=== PATIENT | female | born 1975 | race American Indian/Alaskan Native ===

== ENCOUNTER 2016-09-16 16:04 | Emergency (ER) | payer MEDICAID ==
[2016-09-16] MEDS ORDERED: Sodium Chloride 0.9% 10 ML Syringe FLUSH PRN (16:26)
[2016-09-16 17:22] LABS: CHLORIDE,CL 86 mmol/L (101-111); SODIUM,NA 138 mmol/L (135-145)
[2016-09-16 17:57] VITALS: BP 121/72
--- NOTE | 2016-09-16 18:50 | EDM.PDOC ---
Scribed by Shayy Barboza 09/16/16 [id number] for Christian Mcgovern MD ED HPI GENERAL MEDICAL PROBLEM - General Chief Complaint: Chest Pain Stated Complaint: CHEST PAINS, VOMITTING, [id number] Time Seen by Provider: 09/16/16 16:17 Source of Information: Reports: Patient, RN, RN Notes Reviewed History Limitations: Reports: No Limitations - History of Present Illness INITIAL COMMENTS - FREE TEXT/NARRATIVE: Arrives from home with complaint of epigastric pain x6 weeks, now radiating to chest and 4 days of constant rapid heart rate. Admits to vomiting a couple of times a day for 6 weeks. Denies coffee ground emesis. Reports a small amount of blood streak on the emesis yesterday. Reports fevers on and off x1 week. Duration: Week(s): (6), Constant, Getting Worse Location: Reports: Chest, Abdomen, Generalized Severity: Severe Worsens with: Reports: Eating Epigastric Pain Score (Numeric/FACES): 7 - Related Data Allergies Allergy/AdvReac Type Severity Reaction Status Date / Time No Known Allergies Allergy Verified 02/12/16 09:12 Home Meds: Home Meds metFORMIN [Glucophage] 1,000 mg PO BIDM 10/07/13 [History] Gabapentin [Neurontin] 300 mg PO TID 08/04/14 [History] Metoprolol Succinate [Toprol XL] 50 mg PO DAILY 08/04/14 [History] Ondansetron [Zofran] 4 mg PO ASDIRECTED PRN 08/04/14 [History] PARoxetine [Paxil] 20 mg PO BID 08/04/14 [History] Pantoprazole [Protonix] 40 mg PO DAILY 10/14/14 [History] Ferrous Sulfate 1 tab PO BID 02/12/16 [History] atorvaSTATin [Lipitor] 2 tab PO BEDTIME 02/12/16 [History] glipiZIDE [Glucotrol XL] 1 tab PO DAILY 02/12/16 [History] Past Medical History HEENT History: Reports: Sinusitis Cardiovascular History: Reports: Arrhythmia (atrial flutter), High Cholesterol, Syncope Respiratory History: Reports: None Gastrointestinal History: Reports: Chronic Diarrhea, Other (See Below) (peptic ulcer disease.) Other Gastrointestinal History: some kind of ulcer Genitourinary History: Reports: Renal 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 History: Reports: Musculoskeletal History: Reports: Fibromyalgia 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) Psychiatric History: Reports: Suicide Attempt Endocrine/Metabolic History: Reports: Diabetes, Type II Hematologic History: Reports: Anemia (transfusion x2.), Other (See Below) Other Hematologic History: vitamin D def Immunologic History: Reports: None Oncologic (Cancer) History: Reports: None Dermatologic History: Reports: None - Infectious Disease History Infectious Disease History: Reports: Chicken Pox - Past Surgical History Cardiovascular Surgical History: Reports: Cardiac Ablation Female Surgical History: Reports: Section, Tubal Ligation Social & Family History - Family History HEENT: Reports: None Cardiac: Reports: [place], Other (See Below) Other Cardiac Family History: heart surg Respiratory: Reports: None GI: Reports: None : Reports: Renal Disease/Insufficiency OBGYN: Reports: Ectopic Musculoskeletal: Reports: Fibromyalgia Neurological: Reports: CVA Psychiatric: Reports: Depression Endocrine/Metabolic: Reports: Diabetes, type II Hematologic: Reports: None Immunologic: Reports: None Oncologic: Reports: Breast - Tobacco Use Smoking Status *Q: Current Every Day Smoker Years of Tobacco use: 19 Packs/Tins Daily: 0.1 Second Hand Smoke Exposure: Yes - Caffeine Use Caffeine Use: Reports: Soda - Alcohol Use Days Per Week of Alcohol Use: 0 - Recreational Drug Use Recreational Drug Use: No ED ROS GENERAL - Review of Systems Review Of Systems: ROS reveals no pertinent complaints other than HPI. ED EXAM, GENERAL - Physical Exam Exam: See Below Exam Limited By: No Limitations General Appearance: Alert, No Apparent Distress, Other (chronically ill appearing) Eye Exam: Bilateral Eye: Normal Inspection Ears: Normal External Exam, Normal Canal, Hearing Grossly Normal, Normal TMs Nose: Normal Inspection, Normal Mucosa, No Blood Throat/Mouth: Other (dry oral membranes) Neck: Normal Inspection, Supple, Non-Tender, Full Range of Motion Respiratory/Chest: No Respiratory Distress, Lungs Clear, Normal Breath Sounds, No Accessory Muscle Use, Chest Non-Tender Cardiovascular: Normal Peripheral Pulses, Regular Rate, Rhythm, No Edema, No Gallop, No JVD, No Murmur, No Rub, Tachycardia GI/Abdominal: Soft, Non-Tender, No Distention, No Abnormal Bruit, Abnormal Bowel Sounds (hypoactive). No: Guarding, Rigid, Rebound (Female) Exam: Deferred Rectal (Female) Exam: Deferred Back Exam: Normal Inspection Extremities: Normal Inspection, Normal Range of Motion, Non-Tender, Normal Capillary Refill, No Pedal Edema Neurological: Alert, Oriented, CN II-XII Intact, Normal Cognition, Normal Gait, No Motor/Sensory Deficits Psychiatric: Anxious Skin Exam: Warm, Dry, Intact, No Rash, Pallor Lymphatic: No Adenopathy EKG INTERPRETATION EKG Date: 09/16/16 Time: 16:24 Rhythm: Other (sinus rhythm) Rate (Beats/Min): 99 Jenkins: LAD-Left Jenkins Deviation (borderline) P-Wave: Present QRS: Normal ST-T: Normal QT: Normal Course - Vital Signs Last Recorded V/S: Last Vital Signs Temp 36.4 C 09/16/16 17:56 Pulse 102 H 09/16/16 17:56 Resp 20 09/16/16 17:56 BP 121/72 09/16/16 17:56 Pulse Ox 96 09/16/16 17:56 - Orders/Labs/Meds Orders: Active Orders 24 hr Category Date Time Status EKG 12 Lead [EKG Documentation Completion] [RC] STAT Care 09/16/16 16:27 Active Peripheral IV Care [RC] . DIRECTED Care 09/16/16 16:27 Active Chest 1V Frontal [CR] Stat Exams 09/16/16 16:27 Taken PTH INTACT INCL CALCIUM [REF] Stat Lab 09/16/16 17:50 Received Sodium Chloride 0.9% [Saline Flush] Med 09/16/16 16:26 Active 10 ml FLUSH ASDIRECTED PRN Peripheral IV Insertion Adult [OM.PC] Stat Oth 09/16/16 16:26 Ordered Medication Orders Sodium Chloride (Saline Flush) 10 ml FLUSH ASDIRECTED PRN PRN Reason: Keep Vein Open Last Admin: 09/16/16 17:13 Dose: 10 ml Labs: Laboratory Tests 09/16/16 09/16/16 09/16/16 Range/Units 16:31 16:31 16:40 WBC 9.1 (5.0-10.0) 10^3/uL RBC 4.02 L (4.2-5.4) 10^6/uL Hgb 10.0 L (12.0-16.0) g/dL Hct 33.1 L (37.0-47.0) % MCV 82.3 (80-100) fL MCH 24.9 L (27.0-34.0) pg MCHC 30.2 L (33.0-35.0) g/dL Plt Count 388 (150-450) 10^3/uL Neut % (Auto) 81.4 H (42.2-75.2) % Lymph % (Auto) 9.9 L (20.5-50.1) % [place] % (Auto) 7.4 (2-8) % Eos % (Auto) 1.1 (1.0-3.0) % Baso % (Auto) 0.2 (0.0-1.0) % Sodium (135-145) mmol/L Potassium (3.6-5.0) mmol/L Chloride (101-111) mmol/L Carbon Dioxide (21.0-31.0) mmol/L Anion Gap BUN (7-18) mg/dL Creatinine (0.6-1.3) mg/dL Est Cr Clr Drug Dosing mL/min Estimated GFR (MDRD) BUN/Creatinine Ratio Glucose (74-105) mg/dL Calcium (8.4-10.2) mg/dl Magnesium (1.8-2.5) mg/dL Total Bilirubin (0.2-1.0) mg/dL AST (10-42) IU/L ALT (10-60) IU/L Alkaline Phosphatase (42-121) IU/L Lactate Dehydrogenase (91-180) IU/L Troponin I (0.00-0.02) ng/ml Total Protein (6.7-8.2) g/dl Albumin (3.2-5.5) g/dl Globulin Albumin/Globulin Ratio Amylase (28-100) U/L Lipase (22-51) U/L TSH, Ultra Sensitive (0.35-7.0) uIu/mL Urine Color Yellow (YELLOW) Urine Appearance Cloudy (CLEAR) Urine pH 6.0 (5.0-9.0) Ur Specific [place] 1.020 (1.005-1.030) Urine Protein 30 H (NEGATIVE) Urine Glucose (UA) Negative (NEGATIVE) Urine Ketones Negative (NEGATIVE) Urine Occult Blood Trace-lysed H (NEGATIVE) Urine Nitrite Negative (NEGATIVE) Urine Bilirubin Negative (NEGATIVE) Urine Urobilinogen 0.2 (0.2-1.0) mg/dL Ur Leukocyte Esterase Large H (NEGATIVE) Urine RBC 5-10 H /HPF Urine WBC 50-75 H (0-5/HPF) /HPF Ur Epithelial Cells Many H /HPF Urine Bacteria Moderate H (0-FEW/HPF) /HPF Urine Mucus Few H /LPF Urine HCG, Qual Negative 09/16/16 09/16/16 09/16/16 Range/Units 16:40 16:40 16:40 WBC (5.0-10.0) 10^3/uL RBC (4.2-5.4) 10^6/uL Hgb (12.0-16.0) g/dL Hct (37.0-47.0) % MCV (80-100) fL MCH (27.0-34.0) pg MCHC (33.0-35.0) g/dL Plt Count (150-450) 10^3/uL Neut % (Auto) (42.2-75.2) % Lymph % (Auto) (20.5-50.1) % [place] % (Auto) (2-8) % Eos % (Auto) (1.0-3.0) % Baso % (Auto) (0.0-1.0) % Sodium 138 (135-145) mmol/L Potassium 3.4 L (3.6-5.0) mmol/L Chloride 86 L (101-111) mmol/L Carbon Dioxide 38.0 H (21.0-31.0) mmol/L Anion Gap 17.4 BUN 36 H (7-18) mg/dL Creatinine 3.7 H (0.6-1.3) mg/dL Est Cr Clr Drug Dosing 16.89 mL/min Estimated GFR (MDRD) 14 BUN/Creatinine Ratio 9.72 Glucose 92 (74-105) mg/dL Calcium 18.6 H* (8.4-10.2) mg/dl Magnesium 1.6 L (1.8-2.5) mg/dL Total Bilirubin 0.5 (0.2-1.0) mg/dL AST 27 (10-42) IU/L ALT 16 (10-60) IU/L Alkaline Phosphatase 66 (42-121) IU/L Lactate Dehydrogenase 52 L (91-180) IU/L Troponin I < 0.02 (0.00-0.02) ng/ml Total Protein 8.0 (6.7-8.2) g/dl Albumin 3.9 (3.2-5.5) g/dl Globulin 4.1 Albumin/Globulin Ratio 0.95 Amylase 64 (28-100) U/L Lipase 16 L (22-51) U/L TSH, Ultra Sensitive 0.66 (0.35-7.0) uIu/mL Urine Color (YELLOW) Urine Appearance (CLEAR) Urine pH (5.0-9.0) Ur Specific [place] (1.005-1.030) Urine Protein (NEGATIVE) Urine Glucose (UA) (NEGATIVE) Urine Ketones (NEGATIVE) Urine Occult Blood (NEGATIVE) Urine Nitrite (NEGATIVE) Urine Bilirubin (NEGATIVE) Urine Urobilinogen (0.2-1.0) mg/dL Ur Leukocyte Esterase (NEGATIVE) Urine RBC /HPF Urine WBC (0-5/HPF) /HPF Ur Epithelial Cells /HPF Urine Bacteria (0-FEW/HPF) /HPF Urine Mucus /LPF Urine HCG, Qual 09/16/16 Range/Units 17:50 WBC (5.0-10.0) 10^3/uL RBC (4.2-5.4) 10^6/uL Hgb (12.0-16.0) g/dL Hct (37.0-47.0) % MCV (80-100) fL MCH (27.0-34.0) pg MCHC (33.0-35.0) g/dL Plt Count (150-450) 10^3/uL Neut % (Auto) (42.2-75.2) % Lymph % (Auto) (20.5-50.1) % [place] % (Auto) (2-8) % Eos % (Auto) (1.0-3.0) % Baso % (Auto) (0.0-1.0) % Sodium 137 (135-145) mmol/L Potassium 3.5 L (3.6-5.0) mmol/L Chloride 86 L (101-111) mmol/L Carbon Dioxide 37.0 H (21.0-31.0) mmol/L Anion Gap 17.5 BUN 36 H (7-18) mg/dL Creatinine 3.6 H (0.6-1.3) mg/dL Est Cr Clr Drug Dosing 17.36 mL/min Estimated GFR (MDRD) 14 BUN/Creatinine Ratio Glucose 51 L (74-105) mg/dL Calcium 19.0 H* (8.4-10.2) mg/dl Magnesium (1.8-2.5) mg/dL Total Bilirubin (0.2-1.0) mg/dL AST (10-42) IU/L ALT (10-60) IU/L Alkaline Phosphatase (42-121) IU/L Lactate Dehydrogenase (91-180) IU/L Troponin I (0.00-0.02) ng/ml Total Protein (6.7-8.2) g/dl Albumin (3.2-5.5) g/dl Globulin Albumin/Globulin Ratio Amylase (28-100) U/L Lipase (22-51) U/L TSH, Ultra Sensitive (0.35-7.0) uIu/mL Urine Color (YELLOW) Urine Appearance (CLEAR) Urine pH (5.0-9.0) Ur Specific [place] (1.005-1.030) Urine Protein (NEGATIVE) Urine Glucose (UA) (NEGATIVE) Urine Ketones (NEGATIVE) Urine Occult Blood (NEGATIVE) Urine Nitrite (NEGATIVE) Urine Bilirubin (NEGATIVE) Urine Urobilinogen (0.2-1.0) mg/dL Ur Leukocyte Esterase (NEGATIVE) Urine RBC /HPF Urine WBC (0-5/HPF) /HPF Ur Epithelial Cells /HPF Urine Bacteria (0-FEW/HPF) /HPF Urine Mucus /LPF Urine HCG, Qual Meds: Medications Generic Name Dose Route Start Last Admin Trade Name Freq PRN Reason Stop Dose Admin Sodium Chloride 10 ml 09/16/16 16:26 09/16/16 17:13 Saline Flush FLUSH 10 ml ASDIRECTED PRN Administration Keep Vein Open - Radiology Interpretation Free Text/Narrative:: Chest x-ray: Per rad report no acute findings. Departure - Departure Time of Disposition: 18:21 Disposition: DC/Tfer to Acute Hospital 02 Reason for Transfer *Q: Primary PCI Indicated Condition: Critical Clinical Impression: Hypercalcemia, Unexplained weight loss, Palpitations Abdominal pain Qualifiers: Abdominal location: epigastric Qualified Code(s): R10.13 - Epigastric pain Forms: ED Department Discharge, Interfacility Transfer EMTALA - My Orders Last 24 Hours: My Active Orders 09/16/16 16:26 Sodium Chloride 0.9% [Saline Flush] 10 ml FLUSH ASDIRECTED PRN Peripheral IV Insertion Adult [OM.PC] Stat 09/16/16 16:27 EKG 12 Lead [EKG Documentation Completion] [RC] STAT Peripheral IV Care [RC] . DIRECTED Chest 1V Frontal [CR] Stat 09/16/16 17:50 PTH INTACT INCL CALCIUM [REF] Stat - Assessment/Plan Last 24 Hours: My Active Orders 09/16/16 16:26 Sodium Chloride 0.9% [Saline Flush] 10 ml FLUSH ASDIRECTED PRN Peripheral IV Insertion Adult [OM.PC] Stat 09/16/16 16:27 EKG 12 Lead [EKG Documentation Completion] [RC] STAT Peripheral IV Care [RC] . DIRECTED Chest 1V Frontal [CR] Stat 09/16/16 17:50 PTH INTACT INCL CALCIUM [REF] Stat I have read and agree with the documentation that has been completed regarding this visit. By signing this record, I attest that the documentation was completed in my physical presence and is an accurate record of the encounter.
--- NOTE | 2016-09-20 13:04 | EKG ---
09/16/2016 - ALYSSA PERDOMO - A 12-lead EKG shows normal sinus rhythm with heart rate of 99. No significant ST elevation or ST depression noted on this 12-lead EKG. [facility] /[id number]
== END 2016-09-16 19:04 ==
LOC: DL.ED 16:04
DX: R10.13 Epigastric pain (principal); E83.52 Hypercalcemia; R63.4 Abnormal weight loss; R00.2 Palpitations; E78.00 Pure hypercholesterolemia, unspecified; E11.9 Type 2 diabetes mellitus without complications; D64.9 Anemia, unspecified; F17.210 Nicotine dependence, cigarettes, uncomplicated; Z87.442 Personal history of urinary calculi; Z98.51 Tubal ligation status; Z79.899 Other long term (current) drug therapy; Z79.84 Long term (current) use of oral hypoglycemic drugs
CPT/HCPCS: 36415; 71010; 80048; 80053; 81001; 81025; 82150; 82310; 83615; 83690; 83735; 83970; 84443; 84484; 85025; 93005; 99285; J7050

== ENCOUNTER 2018-05-02 10:05 | Emergency (ER) | payer MEDICAID ==
[2018-05-02 10:19] VITALS: BP 96/75
--- NOTE | 2018-05-02 10:49 | EDM.PDOC ---
ED HPI GENERAL MEDICAL PROBLEM - General Chief Complaint: Abdominal Pain Stated Complaint: STOMACH/KIDNEY PAINS [id number] Time Seen by Provider: 05/02/18 10:36 Source of Information: Reports: Patient, RN, RN Notes Reviewed History Limitations: Reports: No Limitations - History of Present Illness INITIAL COMMENTS - FREE TEXT/NARRATIVE: Pt to ER with c/o stomach pain and "kidney hurts", flank pain. She states it began about 1 1/2 weeks ago and has progressively gotten worse to where she can' t stand it anymore. She rates the pain 6/10. She states she is currently having her period and there is no chances of . Patient admits to fever, nausea and vomiting, SOB and CP with pain. Denies chills, diarrhea. She admits to hx of diabetes, atrial flutter, HTN, high cholesterol. Patient states she still has both her gallbladder and appendix. Onset: Gradual Duration: Constant, Getting Worse Location: Reports: Abdomen Quality: Reports: Sharp, Stabbing Severity: Moderate Improves with: Reports: None Worsens with: Reports: None Associated Symptoms: Reports: Fever/Chills, Nausea/Vomiting Abdomen Pain Score (Numeric/FACES): 9 - Related Data Allergies Allergy/AdvReac Type Severity Reaction Status Date / Time No Known Allergies Allergy Verified 05/02/18 10:11 Home Meds: Home Meds Gabapentin [Neurontin] 300 mg PO TID 08/04/14 [History] Metoprolol Succinate [Toprol XL] 50 mg PO DAILY 08/04/14 [History] Ondansetron [Zofran] 4 mg PO ASDIRECTED PRN 08/04/14 [History] Pantoprazole [Protonix] 40 mg PO DAILY 10/14/14 [History] Ferrous Sulfate 325 mg PO BID 02/12/16 [History] glipiZIDE [Glucotrol XL] 10 tab PO BID 02/12/16 [History] Cyanocobalamin (Vitamin B12) [Cyanocobalamin] 1,000 mcg IM ASDIRECTED 01/02/18 [ History] Folic Acid 1 mg PO DAILY 01/02/18 [History] PARoxetine [Paxil] 30 mg PO DAILY 01/02/18 [History] Potassium Chloride [Klor-Con M20] 20 meq PO DAILY 01/02/18 [History] Past Medical History HEENT History: Reports: Sinusitis Cardiovascular History: Reports: Arrhythmia, High Cholesterol, Syncope Other Cardiovascular History: atrial flutter Respiratory History: Reports: None Gastrointestinal History: Reports: Chronic Diarrhea, Other (See Below) Other Gastrointestinal History: some kind of ulcer Genitourinary History: Reports: Renal Calculus 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: Musculoskeletal History: Reports: Fibromyalgia Neurological History: Reports: Seizure Other Neuro History: "convulsions" when she was 3 Psychiatric History: Reports: Suicide Attempt Endocrine/Metabolic History: Reports: Diabetes, Type II Hematologic History: Reports: Anemia, Other (See Below) Other Hematologic History: vitamin D def Immunologic History: Reports: None Oncologic (Cancer) History: Reports: None Dermatologic History: Reports: None - Infectious Disease History Infectious Disease History: Reports: Chicken Pox - Past Surgical History Head Surgeries/Procedures: Reports: None Cardiovascular Surgical History: Reports: Cardiac Ablation Female Surgical History: Reports: Section, Tubal Ligation Social & Family History - Family History Family Medical History: Noncontributory HEENT: Reports: None Cardiac: Reports: HI, Other (See Below) Other Cardiac Family History: heart surg Respiratory: Reports: None GI: Reports: None : Reports: Renal Disease/Insufficiency OBGYN: Reports: Ectopic Musculoskeletal: Reports: Fibromyalgia Neurological: Reports: CVA Psychiatric: Reports: Depression Endocrine/Metabolic: Reports: Diabetes, type II Hematologic: Reports: None Immunologic: Reports: None Oncologic: Reports: Breast - Tobacco Use Smoking Status *Q: Current Some Day Smoker Years of Tobacco use: 4 Packs/Tins Daily: 1 - Caffeine Use Caffeine Use: Reports: None - Recreational Drug Use Recreational Drug Use: No ED ROS GENERAL - Review of Systems Review Of Systems: ROS reveals no pertinent complaints other than HPI. ED EXAM, GI/ABD - Physical Exam Exam: See Below Exam Limited By: No Limitations General Appearance: Alert, WD/WN, Moderate Distress Eyes: Bilateral: Normal Appearance, EOMI Ears: Normal External Exam, Hearing Grossly Normal Nose: Normal Inspection Throat/Mouth: Normal Inspection, Normal Voice, No Airway Compromise Head: Atraumatic, Normocephalic Neck: Normal Inspection, Supple, Non-Tender, Full Range of Motion Respiratory/Chest: No Respiratory Distress, Lungs Clear, Normal Breath Sounds, No Accessory Muscle Use, Chest Non-Tender Cardiovascular: Normal Peripheral Pulses, Regular Rate, Rhythm, No Edema, No Gallop, No JVD, No Murmur, No Rub GI/Abdominal Exam: Normal Bowel Sounds, Soft, Tender (RUQ, LUQ, epigastrum) (Female) Exam: Deferred Rectal (Female) Exam: Deferred Back Exam: Normal Inspection, Full Range of Motion, CVA Tenderness (L), CVA Tenderness (R) Extremities: Normal Inspection, Normal Range of Motion, Non-Tender, No Pedal Edema, Normal Capillary Refill Neurological: Alert, Oriented, CN II-XII Intact, Normal Cognition, Normal Gait, Normal Reflexes, No Motor/Sensory Deficits Psychiatric: Anxious Skin Exam: Warm, Dry, Intact, Normal Color, No Rash Lymphatic: No Adenopathy Course - Vital Signs Last Recorded V/S: Last Vital Signs Temp 98.6 F 05/02/18 10:15 Pulse 122 H 05/02/18 10:15 Resp 20 05/02/18 10:15 BP 96/75 05/02/18 10:15 Pulse Ox 100 05/02/18 10:15 - Orders/Labs/Meds Orders: Active Orders 24 hr Category Date Time Status Peripheral IV Care [RC] . DIRECTED Care 05/02/18 10:33 Active CULTURE URINE [RM] Stat Lab 05/02/18 10:18 Received Sodium Chloride 0.9% [Normal Saline] 1,000 ml Med 05/02/18 12:11 Active IV .BOLUS Sodium Chloride 0.9% [Saline Flush] Med 05/02/18 10:33 Active 10 ml FLUSH ASDIRECTED PRN Peripheral IV Insertion Adult [OM.PC] Stat Oth 05/02/18 10:33 Ordered Medication Orders Sodium Chloride (Normal Saline) 1,000 mls @ 999 mls/hr IV .BOLUS ONE Stop: 05/02/18 13:11 Last Admin: 05/02/18 12:14 Dose: 999 mls/hr Sodium Chloride (Saline Flush) 10 ml FLUSH ASDIRECTED PRN PRN Reason: Keep Vein Open Last Admin: 05/02/18 10:54 Dose: 10 ml Labs: Laboratory Tests 05/02/18 05/02/18 05/02/18 Range/Units 10:18 10:18 10:18 WBC (5.0-10.0) 10^3/uL RBC (4.2-5.4) 10^6/uL Hgb (12.0-16.0) g/dL Hct (37.0-47.0) % MCV (80-100) fL MCH (27.0-34.0) pg MCHC (33.0-35.0) g/dL Plt Count (150-450) 10^3/uL Neut % (Auto) (42.2-75.2) % Lymph % (Auto) (20.5-50.1) % [place] % (Auto) (2-8) % Eos % (Auto) (1.0-3.0) % Baso % (Auto) (0.0-1.0) % Sodium (135-145) mmol/L Potassium (3.6-5.0) mmol/L Chloride (101-111) mmol/L Carbon Dioxide (21.0-31.0) mmol/L Anion Gap BUN (7-18) mg/dL Creatinine (0.6-1.3) mg/dL Est Cr Clr Drug Dosing mL/min Estimated GFR (MDRD) BUN/Creatinine Ratio Glucose (74-105) mg/dL Calcium (8.4-10.2) mg/dl Total Bilirubin (0.2-1.0) mg/dL AST (10-42) IU/L ALT (10-60) IU/L Alkaline Phosphatase (42-121) IU/L Total Protein (6.7-8.2) g/dl Albumin (3.2-5.5) g/dl Globulin Albumin/Globulin Ratio Amylase (28-100) U/L Lipase (22-51) U/L Urine Color Red (YELLOW) Urine Appearance Slightly cloudy (CLEAR) Urine pH 6.5 (5.0-9.0) Ur Specific [place] 1.020 (1.005-1.030) Urine Protein 100 H (NEGATIVE) Urine Glucose (UA) 100 H (NEGATIVE) Urine Ketones Negative (NEGATIVE) Urine Occult Blood Large H (NEGATIVE) Urine Nitrite Negative (NEGATIVE) Urine Bilirubin Small H (NEGATIVE) Urine Urobilinogen 0.2 (0.2-1.0) mg/dL Ur Leukocyte Esterase Small H (NEGATIVE) Urine RBC >100 H /HPF Urine WBC 10-20 H (0-5/HPF) /HPF Ur Epithelial Cells Many H /HPF Urine Bacteria Moderate H (0-FEW/HPF) /HPF Urine Mucus Few H /LPF Urine HCG, Qual Negative Urine Opiates Screen Negative (NEGATIVE) Ur Oxycodone Screen Negative (NEGATIVE) Urine Methadone Screen Positive H (NEGATIVE) Ur Barbiturates Screen Negative (NEGATIVE) U Tricyclic Antidepress Positive H (NEGATIVE) Ur Phencyclidine Scrn Negative (NEGATIVE) Ur Amphetamine Screen Negative (NEGATIVE) U Methamphetamines Scrn Negative (NEGATIVE) Urine MDMA Screen Negative (NEGATIVE) U Benzodiazepines Scrn Negative (NEGATIVE) Urine Cocaine Screen Negative (NEGATIVE) U Marijuana (THC) Screen Negative (NEGATIVE) 05/02/18 05/02/18 05/02/18 Range/Units 10:26 10:26 10:26 WBC 12.4 H (5.0-10.0) 10^3/uL RBC 5.03 (4.2-5.4) 10^6/uL Hgb 13.4 D (12.0-16.0) g/dL Hct 41.0 (37.0-47.0) % MCV 81.5 (80-100) fL MCH 26.6 L (27.0-34.0) pg MCHC 32.7 L (33.0-35.0) g/dL Plt Count 473 H D (150-450) 10^3/uL Neut % (Auto) 65.9 (42.2-75.2) % Lymph % (Auto) 17.8 L (20.5-50.1) % [place] % (Auto) 6.1 (2-8) % Eos % (Auto) 9.7 H (1.0-3.0) % Baso % (Auto) 0.5 (0.0-1.0) % Sodium 132 L (135-145) mmol/L Potassium 3.4 L (3.6-5.0) mmol/L Chloride 96 L (101-111) mmol/L Carbon Dioxide 20.0 L (21.0-31.0) mmol/L Anion Gap 19.4 BUN 27 H (7-18) mg/dL Creatinine 1.0 (0.6-1.3) mg/dL Est Cr Clr Drug Dosing 61.24 mL/min Estimated GFR (MDRD) > 60 BUN/Creatinine Ratio 27.00 Glucose 337 H (74-105) mg/dL Calcium 10.3 H (8.4-10.2) mg/dl Total Bilirubin 0.4 (0.2-1.0) mg/dL AST 19 (10-42) IU/L ALT 13 (10-60) IU/L Alkaline Phosphatase 68 (42-121) IU/L Total Protein 7.8 (6.7-8.2) g/dl Albumin 3.8 (3.2-5.5) g/dl Globulin 4.0 Albumin/Globulin Ratio 0.95 Amylase 50 (28-100) U/L Lipase 32 (22-51) U/L Urine Color (YELLOW) Urine Appearance (CLEAR) Urine pH (5.0-9.0) Ur Specific [place] (1.005-1.030) Urine Protein (NEGATIVE) Urine Glucose (UA) (NEGATIVE) Urine Ketones (NEGATIVE) Urine Occult Blood (NEGATIVE) Urine Nitrite (NEGATIVE) Urine Bilirubin (NEGATIVE) Urine Urobilinogen (0.2-1.0) mg/dL Ur Leukocyte Esterase (NEGATIVE) Urine RBC /HPF Urine WBC (0-5/HPF) /HPF Ur Epithelial Cells /HPF Urine Bacteria (0-FEW/HPF) /HPF Urine Mucus /LPF Urine HCG, Qual Urine Opiates Screen (NEGATIVE) Ur Oxycodone Screen (NEGATIVE) Urine Methadone Screen (NEGATIVE) Ur Barbiturates Screen (NEGATIVE) U Tricyclic Antidepress (NEGATIVE) Ur Phencyclidine Scrn (NEGATIVE) Ur Amphetamine Screen (NEGATIVE) U Methamphetamines Scrn (NEGATIVE) Urine MDMA Screen (NEGATIVE) U Benzodiazepines Scrn (NEGATIVE) Urine Cocaine Screen (NEGATIVE) U Marijuana (THC) Screen (NEGATIVE) Meds: Medications Generic Name Dose Route Start Last Admin Trade Name Freq PRN Reason Stop Dose Admin Sodium Chloride 1,000 mls @ 999 mls/hr 05/02/18 12:11 05/02/18 12:14 Normal Saline IV 05/02/18 13:11 999 mls/hr .BOLUS ONE Administration Sodium Chloride 10 ml 05/02/18 10:33 05/02/18 10:54 Saline Flush FLUSH 10 ml ASDIRECTED PRN Administration Keep Vein Open Discontinued Medications Generic Name Dose Route Start Last Admin Trade Name Freq PRN Reason Stop Dose Admin Hydromorphone HCl 1 mg 05/02/18 11:28 05/02/18 11:33 Dilaudid IVPUSH 05/02/18 11:29 1 mg ONETIME ONE Administration Sodium Chloride 1,000 mls @ 999 mls/hr 05/02/18 10:44 05/02/18 10:54 Normal Saline IV 05/02/18 11:44 999 mls/hr .BOLUS ONE Administration Ondansetron HCl 4 mg 05/02/18 10:44 05/02/18 10:54 Zofran IV 05/02/18 10:45 4 mg ONETIME ONE Administration - Radiology Interpretation Free Text/Narrative:: Abdomen/Pelvis without contrast: Pancolonic diverticulosis. Negative kidneys, upper urinary tracts and bladder. Ovarian cysts. No urolithiasis. See rad report Departure - Departure Time of Disposition: 12:53 Disposition: Home, Self-Care 01 Condition: Fair Clinical Impression: Bacterial vaginosis, Hyperglycemia UTI (urinary tract infection) Qualifiers: Urinary tract infection type: site unspecified Hematuria presence: with hematuria Qualified Code(s): N39.0 - Urinary tract infection, site not specified ; R31.9 - Hematuria, unspecified Abdominal pain Qualifiers: Abdominal location: epigastric Qualified Code(s): R10.13 - Epigastric pain - Discharge Information *PRESCRIPTION DRUG MONITORING PROGRAM REVIEWED*: No *COPY OF PRESCRIPTION DRUG MONITORING REPORT IN PATIENT [place]: No Instructions: Hyperglycemia, [id number], Antibiotic Medicine, Adult, Easy-to- Read, Urinary Tract Infection, Adult, [id number], Nausea and Vomiting, Adult, [id number], Bacterial Vaginosis Forms: ED Department Discharge Additional Instructions: Drink plenty of water RX: Bactrim, Metronidazole May use Tylenol and/or ibuprofen as directed for pain Follow up with your primary care facility - My Orders Last 24 Hours: My Active Orders 05/02/18 10:18 CULTURE URINE [RM] Stat 05/02/18 10:33 Peripheral IV Care [RC] . DIRECTED Sodium Chloride 0.9% [Saline Flush] 10 ml FLUSH ASDIRECTED PRN Peripheral IV Insertion Adult [OM.PC] Stat 05/02/18 12:11 Sodium Chloride 0.9% [Normal Saline] 1,000 ml IV .BOLUS - Assessment/Plan Last 24 Hours: My Active Orders 05/02/18 10:18 CULTURE URINE [RM] Stat 05/02/18 10:33 Peripheral IV Care [RC] . DIRECTED Sodium Chloride 0.9% [Saline Flush] 10 ml FLUSH ASDIRECTED PRN Peripheral IV Insertion Adult [OM.PC] Stat 05/02/18 12:11 Sodium Chloride 0.9% [Normal Saline] 1,000 ml IV .BOLUS
[2018-05-02] MEDS: Ondansetron 4 MG/2 ML SDV IV ONE (10:54)
[2018-05-02] MEDS: Sodium Chloride 0.9% 1,000 ML IV ONE ×2 (10:54→12:14)
[2018-05-02] MEDS: Sodium Chloride 0.9% 10 ML Syringe FLUSH PRN (10:54)
[2018-05-02 10:58] LABS: ANION GAP 19.4; CHLORIDE,CL 96 mmol/L (101-111); SODIUM,NA 132 mmol/L (135-145)
[2018-05-02] MEDS: HYDROmorphone 1 MG/ML Syringe IVPUSH ONE (11:33)
--- NOTE | 2018-05-02 12:30 | CT ---
Clinical history: 43-year-old 135 pound hypertensive, diabetic female "smoker" with history of kidney stones and now "abdominal/flank pain" ("no stones" reported on CT exam December 2017). Scan technique: Volume acquisition of data emergency unenhanced CT scan of the abdomen and pelvis (kidneys/ureters/bladder) obtained while the patient was lying supine on the Siemens multi slice scanner [place], [place]. All data archived in the PACS system for storage, reformatting axial/sagittal/coronal planes and study. Interpretation: 1. Normal reniform size, axis and configuration. No new signs of urolithiasis or obstructive uropathy i.e. no nephrolithiasis/ureteral lithiasis or abnormal pyelocaliectasis/ureterectasis when compared directly to CT exam images 02 January 2018. 2. No new renal cortical mass lesion or inflammatory changes. No pelvic or abdominal mass lesion. No ascites or free air. 3. Gallbladder, unenhanced liver, stomach, spleen, pancreas and adrenal glands unremarkable. No ventral wall hernias. 4. Pancolonic diverticulosis without associated signs of inflammation. Normal appendix RLQ. 5. Normal caliber aortoiliac vessels. Lumbar spine unremarkable. Lung bases clear. 6. Normal-appearing midline uterus. Ovarian cysts (largest on the right measures 2 cm diameter). CONCLUSION: Pancolonic diverticulosis. Negative kidneys, upper urinary tracts and bladder. Ovarian cysts. No urolithiasis.
[2018-05-02] MEDS: Ketorolac 30 MG/ML SDV IVPUSH ONE (13:00)
== END 2018-05-02 13:41 | disposition home or self-care (01) ==
LOC: DL.ED 10:05
DX: N39.0 Urinary tract infection, site not specified (principal); E11.65 Type 2 diabetes mellitus with hyperglycemia; N76.0 Acute vaginitis; R10.13 Epigastric pain; Z79.899 Other long term (current) drug therapy; F17.210 Nicotine dependence, cigarettes, uncomplicated
CPT/HCPCS: 36415; 74176; 80053; 80305-QW; 81001; 81025; 82150; 83690; 85025; 87086; 87088; 87186; 96361; 96374; 96375; 99284; J0696; J1170; J1885; J2405; J7030; J7050

== ENCOUNTER 2018-05-23 13:58 | Emergency (ER) | payer MEDICAID ==
[2018-05-23 14:29] VITALS: BP 105/82
[2018-05-23 16:37] LABS: ANION GAP 16.3; CHLORIDE,CL 98 mmol/L (101-111); SODIUM,NA 136 mmol/L (135-145)
[2018-05-23] MEDS ORDERED: Ketorolac 30 MG/ML SDV IM ONE (16:58)
--- NOTE | 2018-05-23 16:58 | EDM.PDOC ---
ED HPI GENERAL MEDICAL PROBLEM - General Chief Complaint: Abdominal Pain Stated Complaint: PAIN IN STOMACH Time Seen by Provider: 05/23/18 16:48 Source of Information: Reports: Patient History Limitations: Reports: No Limitations - History of Present Illness INITIAL COMMENTS - FREE TEXT/NARRATIVE: Patient comes emergency Department today with complaints of severe epigastric pain that goes into her back. She has had this pain many times before and she associates it with her ulcer. She has been taking her Protonix daily. She has not had an EGD recently. She has no other pain throughout her abdomen. No fever no chills. She has had some nausea and vomiting. No black or tarry stools. Her last bowel movement was this morning. Although she relates prior to that she had not had a bowel movement in 3 weeks. No hematuria dysuria or urinary frequency. No flank pain. No fever no chills. She was recently treated for urinary tract infection but she is not sure if it has resolved. Has never had any surgeries on her abdomen. Upper Abdominal Pain Score (Numeric/FACES): 8 - Related Data Allergies Allergy/AdvReac Type Severity Reaction Status Date / Time No Known Allergies Allergy Verified 05/23/18 14:21 Home Meds: Home Meds Gabapentin [Neurontin] 300 mg PO TID 08/04/14 [History] Metoprolol Succinate [Toprol XL] 50 mg PO DAILY 08/04/14 [History] Ondansetron [Zofran] 4 mg PO ASDIRECTED PRN 08/04/14 [History] Pantoprazole [Protonix] 40 mg PO DAILY 10/14/14 [History] Ferrous Sulfate 325 mg PO BID 02/12/16 [History] glipiZIDE [Glucotrol XL] 10 tab PO BID 02/12/16 [History] Cyanocobalamin (Vitamin B12) [Cyanocobalamin] 1,000 mcg IM ASDIRECTED 01/02/18 [ History] Folic Acid 1 mg PO DAILY 01/02/18 [History] PARoxetine [Paxil] 30 mg PO DAILY 01/02/18 [History] Potassium Chloride [Klor-Con M20] 20 meq PO DAILY 01/02/18 [History] Past Medical History HEENT History: Reports: Sinusitis Cardiovascular History: Reports: Arrhythmia, High Cholesterol, Syncope Other Cardiovascular History: atrial flutter Respiratory History: Reports: None Gastrointestinal History: Reports: Chronic Diarrhea, Other (See Below) Other Gastrointestinal History: some kind of ulcer Genitourinary History: Reports: Renal Calculus [employer] History: Reports: Musculoskeletal History: Reports: Fibromyalgia Neurological History: Reports: Seizure Other Neuro History: "convulsions" when she was 3 Psychiatric History: Reports: Suicide Attempt Endocrine/Metabolic History: Reports: Diabetes, Type II Hematologic History: Reports: Anemia, Other (See Below) Other Hematologic History: vitamin D def Immunologic History: Reports: None Oncologic (Cancer) History: Reports: None Dermatologic History: Reports: None - Infectious Disease History Infectious Disease History: Reports: Chicken Pox - Past Surgical History Head Surgeries/Procedures: Reports: None Cardiovascular Surgical History: Reports: Cardiac Ablation Female Surgical History: Reports: Section, Tubal Ligation Social & Family History - Family History Family Medical History: Noncontributory HEENT: Reports: None Cardiac: Reports: PR, Other (See Below) Other Cardiac Family History: heart surg Respiratory: Reports: None GI: Reports: None : Reports: Renal Disease/Insufficiency OBGYN: Reports: Ectopic Musculoskeletal: Reports: Fibromyalgia Neurological: Reports: CVA Psychiatric: Reports: Depression Endocrine/Metabolic: Reports: Diabetes, type II Hematologic: Reports: None Immunologic: Reports: None Oncologic: Reports: Breast - Caffeine Use Caffeine Use: Reports: None ED ROS GENERAL - Review of Systems Review Of Systems: ROS reveals no pertinent complaints other than HPI. ED EXAM, GI/ABD - Physical Exam Exam: See Below Exam Limited By: No Limitations General Appearance: Alert, Mild Distress (She appears mildly uncomfortable and is rolling back and forth in the bed.) Ears: Normal External Exam, Normal Canal, Normal TMs Nose: Normal Inspection, Normal Mucosa Throat/Mouth: Normal Inspection, Normal Lips, Normal Oropharynx Head: Atraumatic, Normocephalic Neck: Normal Inspection, Supple, Non-Tender, Full Range of Motion Respiratory/Chest: No Respiratory Distress, Lungs Clear, Normal Breath Sounds, No Accessory Muscle Use, Chest Non-Tender Cardiovascular: Normal Peripheral Pulses, Regular Rate, Rhythm GI/Abdominal Exam: Normal Bowel Sounds, Soft, Tender (Tenderness to the epigastric region. Negative McBurney's point. Rest the abdomen is soft nontender nondistended). No: Non-Tender Back Exam: Normal Inspection, Full Range of Motion. No: CVA Tenderness (L), CVA Tenderness (R) Extremities: Normal Inspection, Normal Range of Motion, Non-Tender, Normal Capillary Refill Neurological: Alert, Oriented, Normal Cognition, No Motor/Sensory Deficits Psychiatric: Anxious Skin Exam: Warm, Dry, Intact, Normal Color, No Rash Lymphatic: No Adenopathy Course - Vital Signs Last Recorded V/S: Last Vital Signs Temp 36.4 C 05/23/18 14:18 Pulse 99 05/23/18 14:18 Resp 18 05/23/18 14:18 BP 105/82 05/23/18 14:18 Pulse Ox 100 05/23/18 14:18 - Orders/Labs/Meds Orders: Active Orders 24 hr Category Date Time Status CULTURE URINE [RM] Urgent Lab 05/23/18 16:12 Results Labs: Laboratory Tests 05/23/18 05/23/18 05/23/18 Range/Units 16:08 16:08 16:12 WBC 10.3 H (5.0-10.0) 10^3/uL RBC 4.22 (4.2-5.4) 10^6/uL Hgb 11.5 L D (12.0-16.0) g/dL Hct 36.7 L (37.0-47.0) % MCV 87.0 D (80-100) fL MCH 27.3 (27.0-34.0) pg MCHC 31.3 L (33.0-35.0) g/dL Plt Count 346 D (150-450) 10^3/uL Neut % (Auto) 66.8 (42.2-75.2) % Lymph % (Auto) 16.4 L (20.5-50.1) % Perry % (Auto) 5.7 (2-8) % Eos % (Auto) 10.7 H (1.0-3.0) % Baso % (Auto) 0.4 (0.0-1.0) % Sodium 136 (135-145) mmol/L Potassium 3.3 L (3.6-5.0) mmol/L Chloride 98 L (101-111) mmol/L Carbon Dioxide 25.0 (21.0-31.0) mmol/L Anion Gap 16.3 BUN 16 (7-18) mg/dL Creatinine 0.9 (0.6-1.3) mg/dL Est Cr Clr Drug Dosing 68.05 mL/min Estimated GFR (MDRD) > 60 BUN/Creatinine Ratio 17.77 Glucose 117 H (74-105) mg/dL Calcium 9.2 (8.4-10.2) mg/dl Total Bilirubin 0.5 (0.2-1.0) mg/dL AST 21 (10-42) IU/L ALT 29 (10-60) IU/L Alkaline Phosphatase 59 (42-121) IU/L Total Protein 7.0 (6.7-8.2) g/dl Albumin 3.4 (3.2-5.5) g/dl Globulin 3.6 Albumin/Globulin Ratio 0.94 Amylase 54 (28-100) U/L Lipase 26 (22-51) U/L Urine Color Yellow (YELLOW) Urine Appearance Cloudy (CLEAR) Urine pH 7.0 (5.0-9.0) Ur Specific [place] 1.015 (1.005-1.030) Urine Protein Trace H (NEGATIVE) Urine Glucose (UA) Negative (NEGATIVE) Urine Ketones Negative (NEGATIVE) Urine Occult Blood Negative (NEGATIVE) Urine Nitrite Negative (NEGATIVE) Urine Bilirubin Negative (NEGATIVE) Urine Urobilinogen 0.2 (0.2-1.0) mg/dL Ur Leukocyte Esterase Small H (NEGATIVE) Urine RBC 0-5 /HPF Urine WBC 50-75 H (0-5/HPF) /HPF Ur Epithelial Cells Many H /HPF Amorphous Sediment Moderate H (0/HPF) /HPF Urine Bacteria Moderate H (0-FEW/HPF) /HPF Hyaline Casts Few H /LPF Fine Granular Casts Rare H (0/LPF) /LPF Urine Mucus Few H /LPF Meds: Medications Discontinued Medications Generic Name Dose Route Start Last Admin Trade Name Freq PRN Reason Stop Dose Admin Al Hydroxide/Mg Hydroxide 30 ml 05/23/18 17:30 05/23/18 17:38 Gi Cocktail PO 05/23/18 17:31 30 ml ONETIME ONE Administration Cephalexin 500 mg 05/23/18 17:02 05/23/18 17:38 Keflex PO 05/23/18 17:03 500 mg ONETIME ONE Administration Ketorolac Tromethamine 30 mg 05/23/18 16:58 05/23/18 17:37 Toradol IM 05/23/18 16:59 30 mg ONETIME ONE Administration - Re-Assessments/Exams Free Text/Narrative Re-Assessment/Exam: 05/23/18 Her urinalysis does show a continued urinary tract infection. Reviewing her previous urine culture the organism that was identified was resistant to the Bactrim that she was placed on. I will start her on Keflex. X-ray of the abdomen was negative for any acute findings per radiology. No visible stool burden. GI cocktail with complete resolution of her symptoms of epigastric pain. We will continue her on her Protonix and add sucralfate as well. She is really unsure of her Helicobacter pylori status and/or she's never been tested for. We will have her follow-up in the clinic for evaluation of her Helicobacter pylori status with either of breath or stool test. She also should consider repeat EGD to evaluate her peptic ulcer disease. She is understanding of this and her questions are answered. Departure - Departure Time of Disposition: 18:06 Disposition: Home, Self-Care 01 Clinical Impression: GERD (gastroesophageal reflux disease) Qualifiers: Esophagitis presence: esophagitis presence not specified Qualified Code(s): K21.9 - Gastro-esophageal reflux disease without esophagitis UTI (urinary tract infection) Qualifiers: Urinary tract infection type: site unspecified Hematuria presence: with hematuria Qualified Code(s): N39.0 - Urinary tract infection, site not specified - Discharge Information Instructions: Food Choices for Gastroesophageal Reflux Disease, Adult, Easy-to- Read, Urinary Tract Infection, Adult, [id number], Gastroesophageal Reflux Disease, Adult, [id number] Referrals: PCP,None [Ordering Only Provider] - Forms: ED Department Discharge Additional Instructions: Maalox or Mylanta for acute episodes of epigastric heartburn pain. Continue your protonix daily. Cephalexin 1 tablet 4 times a day for the next 7 days. RX given to the patient. Carafate, 1 capsul 4 times a day, before meals and bedtime. RX given to the patient. Recheck in the clinic in 1 week consider EGD and H Pylori testing at that time. Return to the ED if new or worsening symptoms. - My Orders Last 24 Hours: My Active Orders 05/23/18 16:12 CULTURE URINE [RM] Urgent - Assessment/Plan Last 24 Hours: My Active Orders 05/23/18 16:12 CULTURE URINE [RM] Urgent Assessment:: UTI GERD Hx of ulcer. Plan: Maalox or Mylanta for acute episodes of epigastric heartburn pain. Continue your protonix daily. Cephalexin 1 tablet 4 times a day for the next 7 days. RX given to the patient. Carafate, 1 capsul 4 times a day, before meals and bedtime. RX given to the patient. Recheck in the clinic in 1 week consider EGD and H Pylori testing at that time. Return to the ED if new or worsening symptoms.
[2018-05-23] MEDS ORDERED: Cephalexin 500 MG Cap PO ONE (17:02)
[2018-05-23] MEDS ORDERED: GI Cocktail Oral Solution 30 ML PO ONE (17:30)
== END 2018-05-23 18:27 | disposition home or self-care (01) ==
LOC: DL.ED 13:58
DX: K21.9 Gastro-esophageal reflux disease without esophagitis (principal); N39.0 Urinary tract infection, site not specified; E11.9 Type 2 diabetes mellitus without complications; Z79.899 Other long term (current) drug therapy
CPT/HCPCS: 36415; 74019; 80053; 81001; 82150; 83690; 85025; 87086; 96372; 99284; A9270; J1885; 87088; 87186